=== PATIENT | male | born 1960 | race Caucasian/White ===

== ENCOUNTER 2022-05-05 18:06 | Emergency (ER) | payer OTHER, MEDICAID ==
[~2022-05-05] VITALS: Ht 182.9 cm; Wt 75.3 kg
[2022-05-05 18:13] VITALS: BP 117/73
--- NOTE | 2022-05-05 18:31 | NUR ---
61 Y/M ROSITAEndy FROM [facility]. PER EMS STAFF CALLED 911 STATING PATIENT HAD A 30-45 SECOND SEIZURE, DESCRIBED IT "ARM SHAKING" WHILE PATIENT WAS WALKING WITH HIS WALKER. DENIES FALL DURING SEIZURE, PATIENT REPORTS FEELING WEAK AND REPORTS HE RECALLS SEIZURE. PMH: SEIZURES, HF, HLD, CVA, CHOLESTEROL ALLERGIES: PHENOBARBITAL
--- NOTE | 2022-05-05 18:54 | NUR ---
LAB AT BEDSIDE.
--- NOTE | 2022-05-05 18:55 | NUR ---
PT HAS 20G IV L AC PUT IN BY EMS.
[2022-05-05 19:05] LABS: BASOPHILS % (AUTO) 0.5 % (0.0-2.0); EOSINOPHILS % (AUTO) 0.6 % (0.0-4.0); HEMOGLOBIN 14.6 g/dL (12.0-18.0); LYMPHOCYTES # (AUTO) 1.1 K/uL (2.0-11.5); LYMPHOCYTES % (AUTO) 17.4 % (20.5-51.1); MEAN CORPUSCULAR HEMOGLOBIN 35 pg (27-31); MEAN CORPUSCULAR HGB CONC 35 g/dL (33-37); MEAN CORPUSCULAR VOLUME 100.2 fL (80-94); MONOCYTES # (AUTO) 0.6 K/uL (0.8-1.0); MONOCYTES % (AUTO) 9.9 % (1.7-9.3); NEUTROPHILS # (AUTO) 4.4 K/uL (1.8-7.7); NEUTROPHILS % (AUTO) 71.6 % (42.2-75.2); PLATELET COUNT (AUTO) 193 K/uL (140-450); RED BLOOD CELL COUNT(AUTO) 4.19 MIL/uL (4.20-6.10); RED CELL DISTRIBUTION WIDTH 13.8 % (11.6-13.7); WHITE BLOOD COUNT (AUTO) 6.2 K/uL (4.8-10.8)
--- NOTE | 2022-05-05 19:10 | NUR ---
GAVE REPORT TO BRENDA EDMONDSON.
--- NOTE | 2022-05-05 19:15 | NUR ---
PT IS AWAKE AND ALERT. ALL NEEDS MET AT THIS TIME. BED LOCKED IN LOWEST POSITION, SIDE RAILS X2 FOR SAFETY. SEIZURE PRECAUTIONS MAINTAINED.
[2022-05-05 19:20] LABS: ANION GAP 18.7 (8-16); CARBON DIOXIDE 22.7 mmol/L (21-32); CREATININE 1.4 mg/dL (0.6-1.3); POTASSIUM 3.4 mmol/L (3.5-5.1)
[2022-05-05] MEDS: MORPHINE SULFATE 4 MG/ML SYR IVP ONE (21:02)
--- NOTE | 2022-05-05 21:33 | NUR ---
PT IS AWAKE AND ALERT. ALL NEEDS MET AT THIS TIME. BED LOCKED IN LOWEST POSITION, SIDE RAILS X2 FOR SAFETY.
--- NOTE | 2022-05-05 23:17 | NUR ---
PATIENT IS AWAKE IN BED. BED LOW AND LOCKED. GABI SIDE RAILS UP. ALL NEEDS MET.
[2022-05-05 23:28] VITALS: BP 109/69
--- NOTE | 2022-05-05 23:28 | NUR ---
Patient discharged with v/s stable. Written and verbal after care instructions given and explained. Patient verbalized understanding. Ambulance Transport with to intermediate. All questions addressed prior to discharge. Advised to follow up with PMD.
== END 2022-05-05 23:28 | disposition home or self-care (01) ==
LOC: MED 18:06
DX: R56.9 Unspecified convulsions (principal); R07.89 Other chest pain; Z86.73 Personal history of transient ischemic attack (TIA), and cerebral infarction without residual deficits; Z98.890 Other specified postprocedural states; Z88.8 Allergy status to other drugs, medicaments and biological substances
CPT/HCPCS: 36415; 80048; 81002; 85025; 93005; 96374; 99283; J2270